=== PATIENT | female | born 1975 | race American Indian/Alaskan Native ===

== ENCOUNTER 2021-07-27 10:01 | Day surgery (SDC) | payer MEDICARE ==
[2021-07-23 13:38] LABS: Hemoglobin 12.2 gm/dl (10.1-14.3); Mean Corpuscular HGB Conc 35 % (30-34); Mean Corpuscular Volume 87 fl (79-97); Platelet Count 281 K/mm3 (140-440); Red Blood Count 4.05 M/mm3 (3.65-5.03)
[2021-07-23 13:45] LABS: Alanine Aminotransferase 11 units/L (7-56); BUN/Creatinine Ratio 17; Blood Urea Nitrogen 15 mg/dL (7-17); Calcium 9.5 mg/dL (8.4-10.2); Hemolysis Index 3
--- NOTE | 2021-07-23 15:22 | Anesthesia Consultation ---
Anesthesia Consult and Med Hx Date of service: 07/27/21 - Airway Anesthetic Teeth Evaluation: Good ROM Head & Neck: Adequate Mental/Hyoid Distance: Adequate Mallampati Class: Class III Intubation Access Assessment: Possibly Difficult - Pulmonary Exam CTA: Yes - Cardiac Exam Cardiac Exam: RRR - Pre-Operative Health Status ASA Pre-Surgery Classification: ASA3 Proposed Anesthetic Plan: General - Pulmonary Hx Smoking: No Hx Asthma: Yes (rare albuterol use; last use 2 months ago) SOB: Yes (pulmonary and cardiac w/u ongoing) Hx Sleep Apnea: Yes (no CPAP) - Cardiovascular System Hx Hypertension: Yes (difficult to control; followed by cardiology) Hx Heart Attack/AMI: No (normal cardiac PET and TTE 2020) Hx Percutaneous Transluminal Coronary Angioplasty (PTCA): No Hx Cardia Arrhythmia: No (no significant arrhythmia on holter monitoring) Hx Pacemaker: No Hx Internal Defibrillator: No - Central Nervous System CVA: No Hx Back Pain: Yes Hx Psychiatric Problems: Yes - Endocrine Hx Renal Disease: No (hx ARF 2/2 rhamdo requiring HD; resolved) Hx Liver Disease: No Hx Insulin Dependent Diabetes: No Hx Non-Insulin Dependent Diabetes: No Hx Thyroid Disease: No - Other Systems Hx Obesity: Yes (BMI 41.9) - Additional Comments Anesthesia Medical History Comments: No hx anesthetic complications. Patient has HTN which is difficult to control as well as other symptoms such as occasional SOB, palpitations, and syncopal episodes. Cardiology eval thus far unrevealing. Pulmonary work up ongoing but patient reports normal PFTs in the past and recent unremarkable CT chest. Most recent cardiology eval from fall 2020 on chart reviewed.
[~2021-07-27 10:01] MED LIST: LACTATED RINGERS 1,000 ML IV SCH; MIDAZOLAM 2 MG/2 ML INJ IV NR; SCOPOLAMINE TRANSDERMAL PATCH 72 HR TD NR
[2021-07-27] MEDS ORDERED: fentaNYL 100 MCG/2 ML INJ ONE (11:32)
[2021-07-27] MEDS ORDERED: propofoL 200 MG/20 ML VIAL IV ONE (11:32)
[2021-07-27] MEDS ORDERED: MIDAZOLAM 2 MG/2 ML INJ ONE (11:32)
[2021-07-27] MEDS ORDERED: LIDOCAINE MPF (2%) 20 MG/1 ML VIAL 5 ML ONE (11:33)
[2021-07-27] MEDS ORDERED: fentaNYL 100 MCG/2 ML INJ IV PRN (11:38)
--- NOTE | 2021-07-27 11:38 | Anesthesia Day of Surgery ---
Anesthesia Day of Surgery - Day of Surgery Patient Examined: Yes Patient H&P Reviewed: Yes Patient is NPO: Yes
[2021-07-27] MEDS ORDERED: dexAMETHasone 20 MG/5 ML VIAL ONE (11:41)
--- NOTE | 2021-07-27 11:48 | Short Stay Summary ---
Short Stay Documentation Date of service: 07/27/21 Narrative H&P: 45-year-old with a history of dysfunctional uterine bleeding. Pelvic ultrasound demonstrated findings likely consistent with endometrial polyp. No significant uterine masses were detected. The patient failed medical management elected to undergo surgical management of her symptoms. - History Principal diagnosis: Dysfunctional uterine bleeding Past Medical History: arthritis, diabetes, hypertension, migraines, pulmonary embolism, other (Asthma;) Past Surgical History: cholecystectomy, , tonsillectomy, Other - Allergies and Medications Current Medications: Allergies acetaminophen [From Percocet] Adverse Reaction (Severe, Verified 07/18/21 16:34) Unknown diphenhydramine [From Benadryl] Adverse Reaction (Severe, Verified 07/18/21 16:34) Dizziness NAUSEA,SHAKES oxycodone [From Percocet] Adverse Reaction (Severe, Verified 07/18/21 16:34) Unknown Sulfa (Sulfonamide Antibiotics) Adverse Reaction (Severe, Verified 07/18/21 16:34) Shortness of Breath ALMOST PASSES OUT,DIZZY,ITCHING ANSAIDS AND ASA Adverse Reaction (Severe, Uncoded 07/18/21 16:34) Bleeding GI BLEED Home Medications Medication Instructions Recorded Confirmed Last Taken Type ALPRAZolam [Xanax TAB] 0.5 mg PO BID PRN 07/18/21 07/27/21 07/27/21 08:00 History Albuterol *Only Ed* 2 puff INHALATION PRN 07/18/21 07/27/21 07/13/21 09:00 History Ergocalciferol [Vitamin D2] 1 cap PO QWEEK 07/18/21 07/27/21 07/13/21 09:00 History Furosemide [Lasix TAB] 40 mg PO QDAY 07/18/21 07/27/21 07/26/21 09:00 History Loratadine [Claritin] 10 mg PO DAILY 07/18/21 07/27/21 07/25/21 09:00 History Losartan [Cozaar] 100 mg PO QDAY 07/18/21 07/27/21 07/26/21 09:00 History carvediloL [Coreg] 25 mg PO BID 07/18/21 07/27/21 07/27/21 08:00 History cloNIDine 1 patch 1XW 07/18/21 07/27/21 07/24/21 09:00 History hydrALAZINE [Apresoline] 25 mg PO TID 07/18/21 07/27/21 07/27/21 08:00 History metFORMIN [Glucophage] 500 mg PO QDAY 07/18/21 07/27/21 07/26/21 09:00 History Active Medications Fentanyl (Fentanyl 100 Mcg/2 Ml Inj) 50 mcg IV Q5MIN PRN PRN Reason: Pain , Severe (7-10) Stop: 07/27/21 20:00 Lactated Ringer's (Lactated Ringers) 1,000 mls @ 100 mls/hr IV DIRECT YOUSUF Stop: 07/27/21 23:59 Last Admin: 07/27/21 11:00 Dose: 100 mls/hr Midazolam HCl (Midazolam 2 Mg/2 Ml Inj) 2 mg IV PREOP NR Stop: 07/27/21 23:59 Ondansetron HCl (Ondansetron 4 Mg/2 Ml Inj) 4 mg IV ONCE PRN PRN Reason: Nausea And Vomiting Scopolamine (Scopolamine Transdermal Patch 72 Hr) 1 each TD PREOP NR Stop: 07/27/21 23:59 Last Admin: 07/27/21 11:00 Dose: 1 each - Physical exam General appearance: no acute distress Integumentary: no rash HEENT: Atraumatic Lungs: Clear to auscultation Breasts: deferred Heart: Regular rate Gastrointestinal: normal Female Genitourinary: deferred Rectal Exam: deferred Extremities: no ischemia - Brief post op/procedure progress note Date of procedure: 07/27/21 Pre-op diagnosis: dysfunctional uterine bleeding Post-op diagnosis: same Procedure: hysteroscopy dilation and curettage endometrial ablation Anesthesia: MAC Surgeon: GARTH PALENCIA Estimated blood loss: minimal Pathology: list (Endometrial curetting) Specimen disposition: to lab Condition: stable - Hospital course Hospital course: The patient was admitted the day of surgery underwent a D&C and NovaSure. Please see operative note for details of surgery. Postoperative course was uneventful. - Disposition Condition at discharge: Good Disposition: 01 HOME / SELF CARE / HOMELESS Short Stay Discharge Plan Activity: other (Pelvic rest for 1 week) Diet: regular Additional Instructions: Schedule follow-up with Dr. Palencia in 2 weeks Prescriptions: cephALEXin [Keflex] 500 mg PO Q12HR #14 cap HYDROcodone/ACETAMINOPHEN [Lortab 10 mg-300 mg per 15 ML ORAL LIQ] 15 ml PO Q6H PRN #300 PRN Reason: Pain , Severe (7-10)
[2021-07-27] MEDS ORDERED: ONDANSETRON 4 MG/2 ML INJ IV PRN (12:00)
[2021-07-27] MEDS ORDERED: SODIUM CHLORIDE 0.9% IRRIG SOLN 2000 ML IR ONE (12:20)
--- NOTE | 2021-07-27 12:37 | Operative Report ---
Operative Report Operative Report: Date of procedure: July 27, 2021 Pre-operative diagnosis: Dysfunctional uterine bleeding Post-operative diagnosis: Same as above Procedure name(s): Hysteroscopy; dilatation and curettage; endometrial ablation via NovaSure Surgeon: Marci Forrest M.D. Mixing Supervisor: None Anesthesia: Laryngeal mask anesthesia Findings normal endometrial cavity Indication: 45-year-old -0-4-2 with a history of dysfunctional uterine bleeding. The patient had a prior endometrial biopsy that demonstrated findings suggestive of endometrial polyp. Procedure The patient was taken to the operating room and given general tracheal anesthesia without complication. The patient was prepped and draped in a normal sterile fashion. A bivalve speculum was placed in the patient's vagina single- tooth tenaculums placed on the anterior lip of the cervix. The cervical os was dilated with graduated dilators. A uterine sound was inserted. The hysteroscope was then placed. Insufflation of the uterine cavity was performed with normal saline. Gen. survey of the uterine cavity revealed normal endometrial cavity. No evidence of endometrial polyp or intracavitary lesions. The hysteroscope was then removed. A sharp curettage of the endometrial surface was performed. Endometrial curettings were sent to pathology. The NovaSure device was then inserted. The endometrial length was 6.0 cm and the uterine width was 2.6 cm. The device was engaged and it passed the surveillance of the uterine cavity. The NovaSure device was then deployed with a energy of 86 W that lasted for 1 minute. The NovaSure device was then removed. The hysteroscope was again reinserted. There was evidence of charring of the endometrial surface. The remainder of the vaginal instruments were then removed atraumatically. The patient was then successfully extubated taken to the recovery room. All sponge laps and needle counts were correct 2.
[2021-07-27] MEDS ORDERED: HYDROcodone/ACETAMINOPHEN 10-325MG TAB ONE (13:08)
--- NOTE | 2021-07-27 14:51 | Post Anesthesia Evaluation ---
- Post Anesthesia Evaluation Patient Participated: Yes Airway Patent: Yes Stable Respiratory Function: Yes Nausea/Vomiting: No Temp > 96.8F: Yes Pain Manageable: Yes Adequeate Hydration: Yes Anesthesia Complications: No
[2021-07-27 18:12] VITALS: BP 164/93
== END 2021-07-27 10:02 | disposition home or self-care (01) ==
LOC: OR 10:01
PROVIDERS: ATTEND Obstetrics & Gynecology
DX: N93.8 Other specified abnormal uterine and vaginal bleeding (principal); G43.909 Migraine, unspecified, not intractable, without status migrainosus; I10 Essential (primary) hypertension; K21.9 Gastro-esophageal reflux disease without esophagitis; E66.9 Obesity, unspecified; M19.90 Unspecified osteoarthritis, unspecified site; F41.9 Anxiety disorder, unspecified; Z79.899 Other long term (current) drug therapy; Z87.442 Personal history of urinary calculi; Z88.2 Allergy status to sulfonamides; Z88.8 Allergy status to other drugs, medicaments and biological substances; Z79.84 Long term (current) use of oral hypoglycemic drugs; Z98.890 Other specified postprocedural states; Z68.41 Body mass index [BMI] 40.0-44.9, adult; Z87.440 Personal history of urinary (tract) infections; Z90.49 Acquired absence of other specified parts of digestive tract
CPT/HCPCS: 36415; 58563; 80053; 82962; 84703; 85027; 88305; J1100; J2250; J2405; J2704; J3010; J3490; J7120; U0003

== ENCOUNTER 2021-10-11 20:51 | Emergency (ER) | payer MEDICARE ==
[2021-10-11 22:25] LABS: Basophils # (Auto) 0.1 K/mm3 (0.0-0.1); Basophils % (Auto) 0.8 % (0.0-1.8); Eosinophils # (Auto) 0.2 K/mm3 (0.0-0.4); Eosinophils % (Auto) 2.1 % (0.0-4.3); Hematocrit 38.2 % (30.3-42.9); Hemoglobin 12.6 gm/dl (10.1-14.3); Lymphocytes % (Auto) 37.6 % (13.4-35.0); Mean Corpuscular HGB Conc 33 % (30-34); Mean Corpuscular Volume 87 fl (79-97); Monocytes # (Auto) 0.8 K/mm3 (0.0-0.8); Monocytes % (Auto) 10.3 % (0.0-7.3); Platelet Count 238 K/mm3 (140-440); Red Blood Count 4.42 M/mm3 (3.65-5.03); Red Cell Distribution Width 14.1 % (13.2-15.2)
[2021-10-11 23:06] LABS: Alanine Aminotransferase 10 units/L (7-56); Albumin 3.9 g/dL (3.9-5); BUN/Creatinine Ratio 16; Blood Urea Nitrogen 14 mg/dL (7-17); Calcium 9.8 mg/dL (8.4-10.2); Hemolysis Index 4
[2021-10-11 23:35] LABS: Color,Urine TNR (Yellow)
[2021-10-11 23:36] LABS: Amorphous Crystals,Urine TNR; Bilirubin,Urine TNR (Negative); Blood,Urine TNR (Negative); Calcium Carbonate Crystals,Ur TNR; Calcium Phosphate Crystals,Ur TNR; Ictotest,Urine TNR (Negative); PH,Urine TNR (5.0-7.0); Protein,Urine TNR mg/dL (Negative); RBC,Urine TNR /HPF (0.0-6.0); Renal Epithelial Cells,Urine TNR /LPF; Urobilinogen,Urine TNR mg/dL (<2.0); WBC,Urine TNR /HPF (0.0-6.0)
[2021-10-11 23:37] LABS: Calcium Oxalate Crystals,Urine TNR; Mucus,Urine TNR /HPF
[2021-10-11 23:46] LABS: Bilirubin,Urine NEG (Negative); Blood,Urine SM (Negative); Calcium Oxalate Crystals,Urine 1+; Color,Urine Yellow (Yellow); Mucus,Urine FEW /HPF; Protein,Urine <15 mg/dL mg/dL (Negative)
[2021-10-12 01:11] VITALS: BP 138/81
[2021-10-12] MEDS ORDERED: IBUPROFEN 600 MG TAB PO ONE (03:58)
[2021-10-12] MEDS ORDERED: ONDANSETRON 4 MG ODT TAB PO ONE (03:58)
[2021-10-12] MEDS ORDERED: cephALEXin 500 MG CAP PO ONE (03:58)
[2021-10-12] MEDS ORDERED: SODIUM CHLORIDE 0.9% 1000 ML 1,000 ML IV ONE (04:20)
--- NOTE | 2021-10-12 04:26 | Emergency Department Report ---
ED Abdominal Pain HPI - General Chief Complaint: Abdominal Pain Stated Complaint: ABD PAIN Time Seen by Provider: 10/12/21 03:56 Source: patient Mode of arrival: Ambulatory Limitations: No Limitations - History of Present Illness Initial Comments: Plan for 5-year-old [place] female who presents with bilateral flank pain radiating to suprapubic for the past week. Patient states chills rigors nausea vomiting and hematuria. Patient does have history of renal stones and endometrial polyps. Patient denies history of hypertension or diabetes. Symptoms are exacerbated by movement and activity. Symptoms are relieved by nothing tried. Pain is rated at 6/10. MD Complaint: abdominal pain, flank pain - Related Data Home Medications Medication Instructions Recorded Confirmed Last Taken ALPRAZolam [Xanax TAB] 0.5 mg PO BID PRN 07/18/21 07/27/21 07/27/21 08:00 Albuterol *Only Ed* 2 puff INHALATION PRN 07/18/21 07/27/21 07/13/21 09:00 Ergocalciferol [Vitamin D2] 1 cap PO QWEEK 07/18/21 07/27/21 07/13/21 09:00 Furosemide [Lasix TAB] 40 mg PO QDAY 07/18/21 07/27/21 07/26/21 09:00 Loratadine [Claritin] 10 mg PO DAILY 07/18/21 07/27/21 07/25/21 09:00 Losartan [Cozaar] 100 mg PO QDAY 07/18/21 07/27/21 07/26/21 09:00 carvediloL [Coreg] 25 mg PO BID 07/18/21 07/27/21 07/27/21 08:00 cloNIDine 1 patch 1XW 07/18/21 07/27/21 07/24/21 09:00 hydrALAZINE [Apresoline] 25 mg PO TID 07/18/21 07/27/21 07/27/21 08:00 metFORMIN [Glucophage] 500 mg PO QDAY 07/18/21 07/27/21 07/26/21 09:00 Previous Rx's Medication Instructions Recorded Last Taken Type HYDROcodone/ACETAMINOPHEN [Lortab 15 ml PO Q6H PRN #300 07/27/21 Unknown Rx 10 mg-300 mg per 15 ML ORAL LIQ] cephALEXin [Keflex] 500 mg PO Q12HR #14 cap 07/27/21 Unknown Rx Ketorolac [Toradol] 10 mg PO Q6H PRN #12 tab 10/12/21 Unknown Rx cephALEXin [Keflex] 500 mg PO BID 7 Days #14 cap 10/12/21 Unknown Rx Allergies Allergy/AdvReac Type Severity Reaction Status Date / Time acetaminophen [From Percocet] AdvReac Severe Unknown Verified 07/18/21 16:34 diphenhydramine AdvReac Severe Dizziness Verified 07/18/21 16:34 [From Benadryl] oxycodone [From Percocet] AdvReac Severe Unknown Verified 07/18/21 16:34 Sulfa (Sulfonamide AdvReac Severe Shortness Verified 07/18/21 16:34 Antibiotics) of Breath ANSAIDS AND ASA AdvReac Severe Bleeding Uncoded 07/18/21 16:34 ED Review of Systems ROS: Stated complaint: ABD PAIN Other details as noted in HPI Constitutional: denies: chills, fever Eyes: denies: eye pain, eye discharge, vision change ENT: denies: ear pain, throat pain Respiratory: denies: cough, shortness of breath, wheezing Cardiovascular: denies: chest pain, palpitations Endocrine: no symptoms reported Gastrointestinal: abdominal pain, nausea, vomiting. denies: diarrhea, constipation, melena Genitourinary: urgency, dysuria, frequency, hematuria. denies: discharge Musculoskeletal: back pain Skin: denies: rash, lesions Neurological: denies: headache, weakness, paresthesias, vertigo Psychiatric: denies: anxiety, depression Hematological/Lymphatic: denies: easy bleeding, easy bruising ED Past Medical Hx - Past Medical History Hx Hypertension: Yes Hx Diabetes: Yes Hx GERD: Yes Hx Sickle Cell Disease: No Hx Arthritis: Yes (NUMBNESS,PAIN WEAKNESS ARMS & LEGS) Hx Headaches / Migraines: Yes (MIGRAINES) Hx Kidney Stones: Yes (PASSED THEM HERSELF) Hx Asthma: Yes Hx Tuberculosis: No Hx HIV: No - Surgical History Hx Cholecystectomy: Yes - Social History Smoking Status: Never Smoker - Medications Home Medications: Home Medications Medication Instructions Recorded Confirmed Last Taken Type ALPRAZolam [Xanax TAB] 0.5 mg PO BID PRN 07/18/21 07/27/21 07/27/21 08:00 History Albuterol *Only Ed* 2 puff INHALATION PRN 07/18/21 07/27/21 07/13/21 09:00 History Ergocalciferol [Vitamin D2] 1 cap PO QWEEK 07/18/21 07/27/21 07/13/21 09:00 History Furosemide [Lasix TAB] 40 mg PO QDAY 07/18/21 07/27/21 07/26/21 09:00 History Loratadine [Claritin] 10 mg PO DAILY 07/18/21 07/27/21 07/25/21 09:00 History Losartan [Cozaar] 100 mg PO QDAY 07/18/21 07/27/21 07/26/21 09:00 History carvediloL [Coreg] 25 mg PO BID 07/18/21 07/27/21 07/27/21 08:00 History cloNIDine 1 patch 1XW 07/18/21 07/27/21 07/24/21 09:00 History hydrALAZINE [Apresoline] 25 mg PO TID 07/18/21 07/27/21 07/27/21 08:00 History metFORMIN [Glucophage] 500 mg PO QDAY 07/18/21 07/27/21 07/26/21 09:00 History HYDROcodone/ACETAMINOPHEN [Lortab 15 ml PO Q6H PRN #300 07/27/21 Unknown Rx 10 mg-300 mg per 15 ML ORAL LIQ] cephALEXin [Keflex] 500 mg PO Q12HR #14 cap 07/27/21 Unknown Rx Ketorolac [Toradol] 10 mg PO Q6H PRN #12 tab 10/12/21 Unknown Rx cephALEXin [Keflex] 500 mg PO BID 7 Days #14 cap 10/12/21 Unknown Rx ED Physical Exam - General Limitations: No Limitations General appearance: alert, in no apparent distress - Head Head exam: Present: normocephalic, normal inspection - Eye Eye exam: Present: PERRL, EOMI Pupils: Present: normal accommodation - ENT ENT exam: Present: mucous membranes moist - Neck Neck exam: Present: normal inspection, full ROM. Absent: tenderness - Respiratory Respiratory exam: Present: normal lung sounds bilaterally. Absent: respiratory distress, wheezes, stridor - Cardiovascular Cardiovascular Exam: Present: regular rate, normal rhythm, normal heart sounds. Absent: systolic murmur, diastolic murmur, rubs, gallop - GI/Abdominal GI/Abdominal exam: Present: soft, tenderness, normal bowel sounds. Absent: distended, guarding (Bilateral flank), rebound, rigid, bruit, hernia - Rectal Rectal exam: Present: deferred - Extremities Exam Extremities exam: Present: normal inspection, full ROM, normal capillary refill - Back Exam Back exam: Present: full ROM, CVA tenderness (R), CVA tenderness (L). Absent: tenderness - Neurological Exam Neurological exam: Present: alert, oriented X3, CN II-XII intact - Expanded Neurological Exam Expanded Patient oriented to: Present: person, place, time Speech: Present: fluid speech Best Eye Response (Shu): (4) open spontaneously Best Motor Response (Shu): (6) obeys commands Best Verbal Response (Shu): (5) oriented [place] Total: 15 - Psychiatric Psychiatric exam: Present: normal affect, normal mood - Skin Skin exam: Present: warm, dry, intact, normal color. Absent: rash ED Course Vital Signs 10/12/21 01:10 Blood Pressure 138/81 [Right] ED Medical Decision Making - Lab Data Result diagrams: 10/11/21 21:51 10/11/21 22:21 Labs 10/11/21 10/11/21 10/11/21 21:51 21:51 22:21 WBC 7.9 RBC 4.42 Hgb 12.6 Hct 38.2 MCV 87 MCH 29 MCHC 33 RDW 14.1 Plt Count 238 Lymph % (Auto) 37.6 H Bennett % (Auto) 10.3 H Eos % (Auto) 2.1 Baso % (Auto) 0.8 Lymph # (Auto) 3.0 Bennett # (Auto) 0.8 Eos # (Auto) 0.2 Baso # (Auto) 0.1 Seg Neutrophils % 49.2 Seg Neutrophils # 3.9 Sodium 142 Potassium 4.2 Chloride 103.1 Carbon Dioxide 27 Anion Gap 16 BUN 14 Creatinine 0.9 Estimated GFR > 60 BUN/Creatinine Ratio 16 Glucose 153 H Calcium 9.8 Total Bilirubin 0.20 AST 14 ALT 10 Alkaline Phosphatase 58 Total Protein 7.5 Albumin 3.9 Albumin/Globulin Ratio 1.1 Lipase 36 HCG, Qual Negative Urine Color Urine Turbidity Urine pH Ur Specific Anderson Urine Protein Urine Glucose (UA) Urine Ketones Urine Blood Urine Nitrite Ur Reducing Substances Urine Bilirubin Urine Ictotest Urine Urobilinogen Ur Leukocyte Esterase Urine WBC (Auto) Urine RBC (Auto) U Epithel Cells (Auto) Urine WBC Clumps Ur Transition Epith Cell Ur Renal Epithelial Cell Calcium Carbonate Cryst Calcium Phosphate Cryst Calcium Oxalate Crystal Amorphous Crystals Urine Mucus 10/11/21 10/11/21 Unknown Unknown WBC RBC Hgb Hct MCV MCH MCHC RDW Plt Count Lymph % (Auto) Bennett % (Auto) Eos % (Auto) Baso % (Auto) Lymph # (Auto) Bennett # (Auto) Eos # (Auto) Baso # (Auto) Seg Neutrophils % Seg Neutrophils # Sodium Potassium Chloride Carbon Dioxide Anion Gap BUN Creatinine Estimated GFR BUN/Creatinine Ratio Glucose Calcium Total Bilirubin AST ALT Alkaline Phosphatase Total Protein Albumin Albumin/Globulin Ratio Lipase HCG, Qual Urine Color TNR Yellow Urine Turbidity TNR Clear Urine pH TNR 6.0 Ur Specific Anderson TNR 1.027 Urine Protein TNR <15 mg/dl Urine Glucose (UA) TNR Neg Urine Ketones TNR Tr Urine Blood TNR Sm Urine Nitrite TNR Neg Ur Reducing Substances TNR Urine Bilirubin TNR Neg Urine Ictotest TNR Urine Urobilinogen TNR 2.0 Ur Leukocyte Esterase TNR Tr Urine WBC (Auto) TNR 5.0 Urine RBC (Auto) TNR 5.0 U Epithel Cells (Auto) TNR 3.0 Urine WBC Clumps TNR Ur Transition Epith Cell TNR Ur Renal Epithelial Cell TNR Calcium Carbonate Cryst TNR Calcium Phosphate Cryst TNR Calcium Oxalate Crystal TNR 1+ Amorphous Crystals TNR Urine Mucus TNR Few - Radiology Data Radiology results: report reviewed, image reviewed CT ABDOMEN AND PELVIS WITHOUT CONTRAST INDICATION / CLINICAL INFORMATION: r/o obstructive renal stone. TECHNIQUE: Axial CT images were obtained through the abdomen and pelvis without IV contrast. All CT scans at this location are performed using CT dose reduction for ALARA by means of automated exposure control. COMPARISON: None available. FINDINGS: LOWER CHEST: No significant abnormality LIVER: No significant abnormality GALLBLADDER/BILIARY TREE: Cholecystectomy. PANCREAS: No significant abnormality SPLEEN: No significant abnormality ADRENALS: No significant abnormality KIDNEYS: Punctate nonobstructive bilateral renal stones. No urolithiasis or hydronephrosis. URINARY BLADDER: Bladder is partially decompressed, though grossly unremarkable. REPRODUCTIVE ORGANS: No significant abnormality STOMACH / BOWEL: Small bowel is normal in caliber. Moderate stool in the colon. No evidence of localized bowel inflammation or obstruction. The appendix is normal in caliber. LYMPH NODES: No significant adenopathy. VASCULATURE: No significant abnormality. OTHER: No free air, free fluid, or focal fluid collection is identified. SKELETAL SYSTEM: No acute osseous findings. IMPRESSION: 1. No acute abnormality. 2. Small bilateral nonobstructive renal stones. No urolithiasis or hydronephrosis. 3. Moderate stool in the colon, may reflect constipation. No evidence of localized bowel inflammation or obstruction. Signer Name: Julien Kerns MD Signed: 10/12/2021 4:55 AM Workstation Name: [id number] Transcribed By: MELE Dictated By: JULIEN KERNS MD Electronically Authenticated By: JULIEN KERNS MD Signed Date/Time: 10/12/21454 DD/ 1 TD/TT: - Medical Decision Making CT scan bilateral small punctate nonobstructive renal calculi. Likely source of pain. Urine mild leukocytes bacteria. Patient's symptoms are improved at this time plan DC to home with prescriptions, follow-up with urology. Follow-up w [facility] primary care doctor. Return to emergency department should symptoms worsen. Patient verbalized agreement and understanding with discharge plan. Patient DC'd home in stable condition at this time. Critical care attestation.: If time is entered above; I have spent that time in minutes in the direct care of this critically ill patient, excluding procedure time. ED Disposition Clinical Impression: Renal stone UTI (urinary tract infection) Qualifiers: Urinary tract infection type: acute cystitis Hematuria presence: without hematuria Qualified Code(s): N30.00 - Acute cystitis without hematuria Disposition: HOME / SELF CARE / HOMELESS Is pt being admited?: No Does the pt Need Aspirin: No Condition: Stable Instructions: Abdominal Pain (ED), Urinary Tract Infection, Adult, [id number], Kidney Stones, [id number] Additional Instructions: Take medications as prescribed, follow-up with urology as directed. Follow-up with your primary care doctor as directed. Return to emergency department should symptoms worsen. Prescriptions: cephALEXin [Keflex] 500 mg PO BID 7 Days #14 cap Ketorolac [Toradol] 10 mg PO Q6H PRN #12 tab PRN Reason: Pain Referrals: ASHA DIGGS MD [Staff Physician] - 3-5 Days BALWINDER GUSTAFSON MD [Staff Physician] - 3-5 Days Forms: Work/School Release Form(ED) Time of Disposition: 05:28
--- NOTE | 2021-10-12 05:00 | Cat Scan Report ---
CT ABDOMEN AND PELVIS WITHOUT CONTRAST INDICATION / CLINICAL INFORMATION: r/o obstructive renal stone. TECHNIQUE: Axial CT images were obtained through the abdomen and pelvis without IV contrast. All CT scans at this location are performed using CT dose reduction for ALARA by means of automated exposure control. COMPARISON: None available. FINDINGS: LOWER CHEST: No significant abnormality LIVER: No significant abnormality GALLBLADDER/BILIARY TREE: Cholecystectomy. PANCREAS: No significant abnormality SPLEEN: No significant abnormality ADRENALS: No significant abnormality KIDNEYS: Punctate nonobstructive bilateral renal stones. No urolithiasis or hydronephrosis. URINARY BLADDER: Bladder is partially decompressed, though grossly unremarkable. REPRODUCTIVE ORGANS: No significant abnormality STOMACH / BOWEL: Small bowel is normal in caliber. Moderate stool in the colon. No evidence of locali zed bowel inflammation or obstruction. The appendix is normal in caliber. LYMPH NODES: No significant adenopathy. VASCULATURE: No significant abnormality. OTHER: No free air, free fluid, or focal fluid collection is identified. SKELETAL SYSTEM: No acute osseous findings. IMPRESSION: 1. No acute abnormality. 2. Small bilateral nonobstructive renal stones. No urolithiasis or hydronephrosis. 3. Moderate stool in the colon, may reflect constipation. No evidence of localized bowel inflammation or obstruction. Signer Name: Ta Garcia MD Signed: 10/12/2021 4:55 AM Workstation Name: [id number]
[2021-10-12] MEDS ORDERED: KETOROLAC 30 MG/1 ML INJ IV ONE (05:25)
== END 2021-10-12 06:41 | disposition home or self-care (01) ==
LOC: ED 20:51
DX: N39.0 Urinary tract infection, site not specified (principal); N20.0 Calculus of kidney; I10 Essential (primary) hypertension; E11.9 Type 2 diabetes mellitus without complications; K21.9 Gastro-esophageal reflux disease without esophagitis; M19.90 Unspecified osteoarthritis, unspecified site; G43.909 Migraine, unspecified, not intractable, without status migrainosus; J45.909 Unspecified asthma, uncomplicated; Z79.899 Other long term (current) drug therapy; Z88.6 Allergy status to analgesic agent; Z88.1 Allergy status to other antibiotic agents; Z91.09 Other allergy status, other than to drugs and biological substances
CPT/HCPCS: 36415; 74176; 80053; 81001; 83690; 84703; 85025; 96361; 96374; 99284; J1885; J7030; J3490; Q0162